=== PATIENT | male | born 2000 | race Caucasian/White ===

== ENCOUNTER 2024-06-14 21:29 | Emergency (ER) | payer SELFPAY ==
[~2024-06-14] VITALS: Ht 177.8 cm; Wt 56.8 kg
[2024-06-14 21:36] VITALS: TEMP 98.6
[2024-06-14 22:18] LABS: COLLECTION METHOD CLEAN CATCH
[2024-06-14 22:22] LABS: PH 7.5 (5.0-8.5); URINE APPEARANCE CLEAR (CLEAR/HAZY); URINE BLOOD NEGATIVE (NEGATIVE); URINE COLOR YELLOW (YELLOW); URINE GLUCOSE NEGATIVE (NEGATIVE); URINE KETONE NEGATIVE (NEGATIVE); URINE NITRATE NEGATIVE (NEGATIVE); URINE PROTEIN(semi-quant) NEGATIVE (NEGATIVE)
[2024-06-14 22:31] LABS: BASO % 0.4 % (0.0-2.0); GRAN % 80.2 % (42.2-75.2); HEMATOCRIT 42.5 % (42.0-52.0); HEMOGLOBIN 14.6 g/dl (13.5-18.0); LYMPH # 1.4 K/mm3 (1.2-3.4); LYMPH % 13.8 % (20.0-51.0); MEAN CELL VOLUME 88 fl (80.0-100.0); MEAN CORPUSCULAR HEMOGLOBIN 30 pg (27-31); MEAN CORPUSCULAR HGB CONC 34 g/dl (33.0-37.0); MEAN PLATELET VOLUME 10.6 fl (7.4-10.4); MONO # 0.5 K/mm3 (0.1-0.6); MONO % 5.3 % (1.7-9.3); PLATELET COUNT 169 K/mm3 (130-400); RED BLOOD COUNT 4.83 M/mm3 (4.20-5.60); REDCELL DISTRIBUTION WIDTH-CV 12.8 % (11.5-14.5)
[2024-06-14 22:31] LABS: TRICYCLIC ANTIDEPRESS URINE NEGATIVE (NEGATIVE)
[2024-06-14 22:48] LABS: ALANINE AMINOTRANSFERASE 22 U/L (0-55); ALBUMIN 5.1 g/dL (3.5-5.0); ALKALINE PHOSPHATASE 72 U/L (40-150); ANION GAP 13 mmol/L (7-16); AST,SGOT 21 U/L (5-34); BILIRUBIN,TOTAL 0.7 mg/dL (0.2-1.2); BLOOD UREA NITROGEN 9 mg/dL (9-21); CALCIUM 9.8 mg/dL (8.4-10.2); CHLORIDE 103 mEq/L (98-107); CREATININE, serum 0.87 mg/dL (0.72-1.25); GLUCOSE 104 mg/dL (70-99); POTASSIUM 3.4 mEq/L (3.5-4.5); SODIUM 141 mEq/L (136-145); TOTAL PROTEIN 8.2 g/dl (6.2-8.1)
[2024-06-14 22:55] LABS: ALCOHOL(ethanol),MEDICAL < 10 mg/dL (0-10); SALICYLATE < 5.0 mg/dL (15.0-30.0)
[2024-06-15 02:59] VITALS: BP 113/65; PULSE 64
== END 2024-06-15 03:15 | disposition home or self-care (01) ==
LOC: COL.ER 21:29
PROVIDERS: Nurse Practitioner Primary Care
DX: R45.851 Suicidal ideations (principal); Z86.59 Personal history of other mental and behavioral disorders

== ENCOUNTER 2024-06-19 22:39 | Emergency (ER) | payer SELFPAY ==
[~2024-06-19] VITALS: Ht 177.8 cm; Wt 54.5 kg
[2024-06-19 22:43] VITALS: TEMP 98.3
[2024-06-19] MEDS ORDERED: NS 1,000 ML IV ONE (23:00)
[2024-06-19] MEDS ORDERED: diphenhydrAMINE 50 MG/ML 1 ML VIAL IV ONE (23:00)
[2024-06-19 23:10] LABS: BASO % 0.2 % (0.0-2.0); EOS % 0.3 % (0.0-4.0); GRAN # 4.4 K/mm3 (1.4-6.5); GRAN % 74.6 % (42.2-75.2); HEMATOCRIT 42.2 % (42.0-52.0); HEMOGLOBIN 14.8 g/dl (13.5-18.0); LYMPH # 0.8 K/mm3 (1.2-3.4); LYMPH % 14.2 % (20.0-51.0); MEAN CELL VOLUME 89 fl (80.0-100.0); MEAN CORPUSCULAR HEMOGLOBIN 31 pg (27-31); MEAN CORPUSCULAR HGB CONC 35 g/dl (33.0-37.0); MEAN PLATELET VOLUME 10.9 fl (7.4-10.4); MONO # 0.6 K/mm3 (0.1-0.6); MONO % 10.4 % (1.7-9.3); PLATELET COUNT 137 K/mm3 (130-400); RED BLOOD COUNT 4.76 M/mm3 (4.20-5.60); REDCELL DISTRIBUTION WIDTH-CV 12.8 % (11.5-14.5)
[2024-06-19 23:20] LABS: ALANINE AMINOTRANSFERASE 23 U/L (0-55); ALBUMIN 4.9 g/dL (3.5-5.0); ALKALINE PHOSPHATASE 70 U/L (40-150); ANION GAP 18 mmol/L (7-16); AST,SGOT 21 U/L (5-34); BILIRUBIN,TOTAL 0.5 mg/dL (0.2-1.2); BLOOD UREA NITROGEN 10 mg/dL (9-21); CHLORIDE 103 mEq/L (98-107); CREATININE, serum 0.78 mg/dL (0.72-1.25); GLUCOSE 103 mg/dL (70-99); MAGNESIUM 1.6 mg/dL (1.6-2.6); POTASSIUM 3.4 mEq/L (3.5-4.5); SODIUM 141 mEq/L (136-145); TOTAL PROTEIN 7.9 g/dl (6.2-8.1)
[2024-06-19 23:42] LABS: TROPONIN-I < 0.010 ng/mL (0.00-0.033)
[2024-06-20 00:01] LABS: COLLECTION METHOD CLEAN CATCH
[2024-06-20 00:51] LABS: PH 7.5 (5.0-8.5); URINE APPEARANCE CLEAR (CLEAR/HAZY); URINE BLOOD NEGATIVE (NEGATIVE); URINE COLOR YELLOW (YELLOW); URINE GLUCOSE NEGATIVE (NEGATIVE); URINE KETONE NEGATIVE (NEGATIVE); URINE NITRATE NEGATIVE (NEGATIVE); URINE PROTEIN(semi-quant) NEGATIVE (NEGATIVE); URINE UROBILINOGEN 0.2 E.U/dL (0.2-1.0)
[2024-06-20 01:18] VITALS: BP 125/74; PULSE 80
== END 2024-06-20 01:20 | disposition home or self-care (01) ==
LOC: COL.ER 22:39
PROVIDERS: Emergency Medicine
DX: R25.1 Tremor, unspecified (principal); E87.6 Hypokalemia; F17.200 Nicotine dependence, unspecified, uncomplicated
CPT/HCPCS: J7030

== ENCOUNTER 2024-07-17 02:10 | Emergency (ER) | payer SELFPAY ==
[~2024-07-17] VITALS: Ht 177.8 cm; Wt 56.8 kg
[2024-07-17 02:15] VITALS: TEMP 98.9
[2024-07-17 03:14] VITALS: BP 110/65; PULSE 92
--- NOTE | 2024-07-17 10:12 | NUR ---
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 SW reviewed the [facility] website which stated copay for self-pay is $200 and did not mention any financial assistance. SW contacted [facility] to determine if they are able to pay a copays for patient's medical visits. [facility] stated they are unable to pay for those and they know [facility] is also unable to pay copays. SW attempted to contact [employer], no answer. SW contacted the emergency group home to determine if patient was still there. SW was notified patient was not staying there because he became to mentally decline and they transferred him to the [facility]. SW contacted the CSU to determine if they would have funds to pay for the copay for patient. CSU would look into it but would need to know the amount. CSU expressed it was unlikely but they would look into it. SW attempted to contact patient, no answer. SW left a detailed voicemail. SW contacted [facility] to discuss financial assistance. SW was notified patient would need to pay $250 for the copay then would be billed the remainder of the visit i.e. xray or PT costs. SW asked about financial assistance and was notified they have a financial assistance application and payment plans. SW requested this application be faxed to the hospital. SW asked if patient scheduled an appointment. SW was notified the ortho office has received his demographic information but patient has not called to schedule the appointment. SW received call from patient. Andriy stated he was doing better now that his split is on correctly. SW discussed the need for the ortho follow up. Patient stated he does not have funds to afford the copay. SW asked where patient was currently staying. Patient stated he is a the [facility]. SW explained the cost is $250 for the copay then he would be billed the remainder if there was additional cost. SW explained they have a financial assistance application that she can send to the CSU for them to assist him with this form. Patient stated that would be great. SW explained she spoke with them earlier about copay cost and they stated they would look into it but were uncertain if they would be able to assist. SW explained the agencies she has called for assistance. SW asked if patient has a follow up appointment scheduled at the [facility]. Patient stated he had not. SW asked if he would be okay with her scheduling the appointment, patient stated that would be great and asked the social studies teacher to notify the CSU when the appointment was scheduled for. SW asked for verbal permission to give his information to the community care team. Patient gave verbal permission. SW discussed [employer] with patient. Patient stated he believes he is enrolled in something similiar and was not interested in it at this time because he was going to apply for disability. SW was notified patient applied for Medicaid yesterday. ROS provided the release to Octavia Mederos, SW director, to send to the CCT whom is meeting today. Octavia Mederos will present his information to the CCT. ROS scheduled patient's follow up with his PCP at [facility] for the first available appointment on August 05 at 1 pm. ROS contacted the CSU and notified them of the appointment with the PCP. ROS explained she did not schedule the ortho appointment due to patient needing the copay at time of visit. ROS explained the copay is $250 then he would be billed the remainder. ROS explained they have a financial assistance application at ortho and asked if it would be okay for her to send it to them to assist him. CSU stated that would be okay and they would assist patient with this. They are looking into if they can assist with the copay. ROS faxed the financial application to CSU. ROS emailed finanical counseling at the [facility] for assistance with FAA at the hospital.
== END 2024-07-17 03:14 | disposition home or self-care (01) ==
LOC: COL.ER 02:10
DX: S62.306D Unspecified fracture of fifth metacarpal bone, right hand, subsequent encounter for fracture with routine healing (principal); F17.290 Nicotine dependence, other tobacco product, uncomplicated; X58.XXXD Exposure to other specified factors, subsequent encounter